=== PATIENT | female | born 1990 | race Caucasian/White ===

== ENCOUNTER 2018-04-03 08:00 | Inpatient (IN) ==
[2018-04-03] MEDS ORDERED: miSOPROStol 25 MCG TABLET VG PRN (08:27)
[2018-04-03] MEDS ORDERED: Metoclopramide 10 MG/2 ML VIAL IVP PRN (08:27)
[2018-04-03] MEDS ORDERED: *HR* Nalbuphine 10 MG/ML AMPUL IVP PRN (08:27)
[2018-04-03] MEDS ORDERED: Naloxone 0.4 MG/ML INJ IVP PRN (08:27)
[2018-04-03] MEDS ORDERED: Famotidine 20 MG/2 ML VIAL IVP PRN (08:27)
[2018-04-03] MEDS ORDERED: Ringers Solution, Lactated 1,000 ML IVC SCH (08:30)
[2018-04-03] MEDS ORDERED: Ringers Solution, Lactated 1,000 ML ONE (08:45)
[2018-04-03 08:58] LABS: Basophils % 0.4 %; Eosinophils # 0.1 K/mcL (0.0-0.6); Eosinophils % 1.1 %; Hematocrit 41.5 % (35.3-44.9); Hemoglobin 14.3 g/dL (11.5-15.4); Immature Granulocytes % 0.7 % (0-4); Lymphocytes # 1.8 K/mcL (0.6-4.6); Lymphocytes % 19.7 %; Mean Corpuscular HGB Conc 34.5 g/dL (31.6-35.5); Mean Corpuscular Volume 89.8 fL (83.0-100.0); Mean Platelet Volume 10.2 fL (9.4-12.4); Monocytes # 0.6 K/mcL (0.0-1.3); Monocytes % 6.9 %; Neutrophils # 6.4 K/mcL (1.6-8.9); Platelet Count 213 K/mcL (140-400); Red Blood Count 4.62 M/mcL (3.82-4.97); Red Cell Distribution Width 12.8 % (11.5-14.5); Segmented Neutrophils % 71.2 %
[2018-04-03 09:36] LABS: Amphetamine Screen,Urine Negative ng/mL (Cutoff=1000); Barbiturate Screen,Urine Negative ng/mL (Cutoff=200); Benzodiazepines Screen,Urine Negative ng/mL (Cutoff=200); Cannabinoid Screen,Urine Negative ng/mL (Cutoff = 50); Cocaine Screen,Urine Negative ng/mL (Cutoff= 300); Opiate Screen,Urine Negative ng/mL (Cutoff=300); Phencyclidine Screen,Urine Negative ng/mL (Cutoff=25)
--- NOTE | 2018-04-03 10:04 | OB/GYN History & Physical ---
Date of Encounter: 04/03/18 Time of Encounter: 09:57 Assessment and Plan (1) 40 weeks gestation of Current visit: Yes Status: Acute Admit to labor and delivery. epidural and nubain available at request. 50mcg of cytotec given. Continous heart monitoring. GBS negative. Anticipate vaginal delivery. OB recreation technician is Dr. Haywood (2) Encounter for induction of labor Current visit: Yes Status: Acute History of Present Illness Chief complaint: Induction of Labor HPI: Ms. Givens is a 27 year old female presenting to labor and delivery today for induction of labor. She is a and 40weeks 2days gestation. No complications in thus far. She denies leakage of clear fluid, and denies vaginal bleeding. She admits to good movement. Her primary OB physician is Dr. Haywood. Blood type: O+ GBS Status: negative Hep B Surface Ag: negative HIV Ab: negative Treponema Ab: negative Gonorrhea/Chlamydia: negative Varicella: positive IgG Ab Rubella: Positive IgG Ab Urine Drug Screen: negative Past Med Surg Social Fam HX - Past Medical History Source: patient Medical history: no medical history, other Additional medical history: uncomplicated vaginal delivery 06/2014 Psychiatric history: no psych history - Past Surgical History Surgical History: no surgical history - Social History Smoking Status: Never smoker Alcohol use: none Drug use: none - Family History Father Living Status: Still Living Hx Family Cardiac Disorders: Yes (triple bypass) Obstetrical History - Pregnancies : 4 Para: 1 Term: 1 : 0 Ab's: 2 Livin Medications and Allergies Folic Acid [Folic Acid] 1 mg PO DAILY 04/03/18 [History] One Daily Tablet 1 tab PO DAILY 04/03/18 [History] 3 Allergy/AdvReac Type Severity Reaction Status Date / Time No Known Allergies Allergy Verified 04/03/18 09:12 Review of System OB All systems PM: reviewed and no additional remarkable complaints except as stated - Constitutional Constitutional ROS IM: as per HPI, no fever(s) - Cardiovascular Cardiovascular: no chest pain, no leg edema - Gastrointestinal Gastrointestinal: no abdominal pain - Integumentary Integumentary: no swelling - Neurological Nerological: no headache(s), no other visual disturbances Exam - Vital Signs Vital signs: Initial Vital Signs Temp Pulse Resp BP 98.0 F 86 12 122/78 09/19/18 08:49 04/03/18 08:49 04/03/18 08:49 04/03/18 08:49 - Constitutional Constitutional: well developed, well nourished, no acute distress, average body habitus - HEENT HEENT: EOMI - Lungs Respiratory exam: CTAB - Cardiovascular Cardiovascular exam: RRR - Abdomen Abdomen: Present: gravid, non tender - Cervix Dilation: 3 (on exam 04/02) Effacement: 80 Station: -3 Results Result Diagrams: 04/03/18 08:40 All other labs normal. - VTE Reasons for not Prescribing Prophylaxis: Treatment not Indicated - Low risk for VTE
--- NOTE | 2018-04-03 13:59 | OB Labor Progress Note ---
Date of Encounter: 04/03/18 Time of Encounter: 13:58 Labor Progress Note - Subjective Subjective: Patient states feeling occasional contractions - Cervix Cervix: 3/80/-2 - Heart Tones Heart Tones: 135/moderate/positive accelerations/negative decels - Interventions Interventions: AROM for small amount of clear fluid - Plan Plan: Start Pitocin per policy Nubain and epidural as desired Frequent repositioning Anticipate
[2018-04-03] MEDS ORDERED: Oxytocin 20 units/ LR 1000 mL 20 UNIT/1,000 ML BAG IVC ONE (14:29)
[2018-04-03] MEDS ORDERED: Oxytocin 20 units/ LR 1000 mL 20 UNIT/1,000 ML BAG IVC SCH ×2 (14:30→19:24)
--- NOTE | 2018-04-03 17:37 | OB/GYN Procedure Note ---
Delivery - Delivery Date: 04/03/18 Provider: Shelley Haywood Intrapartum events: none Delivery induction: AROM, oxytocin, misoprostol Delivery monitor: external FHT, external uterine Anesthesia: local Quantitated Blood Loss: 400 - Infant (s) A Delivery Date: 04/03/18 Delivery Time: 17:03 Presentation: vertex Position: CYRUS Route of delivery: Gender: Male Viability: Viable Pounds: 7 Ounces: 11 Weight Gram: 3.494 kg at 1 minute: 8 at 5 mins: 9 Shoulder Dystocia: not encountered Specimens collected: cord blood Placenta: spontaneous Cord: nuchal cord (x3), 3 umbilical vessels - Repair Episiotomy: none Laceration Description: Perineal - 2nd Degree - Complications Delivery complications: none Delivery comments: Called to room with patient complete and +2 station. Under maternal effort she delivered a viable male weighing 7 lbs. 11 oz. and Apgars 8 and 9 at one and 5 minutes respectively. Following delivery of the head there was nuchal cord noted which she delivered through. After delivery nuchal cord 3 was reduced and was placed on mom's abdomen. Cord was allowed to cease pulsations and then was double clamped and cut with assistance from the father. Cord blood was collected. Second-degree perineal laceration was found on exam. The area was anesthetized using 1% lidocaine with epinephrine. The repair was done using 3-0 Monocryl in standard fashion. Placenta delivered spontaneously, complete, and intact with a three-vessel cord. Mother and infant are recovering in the LDR in stable condition. - Disposition Mom disposition: stable in LDR [place] disposition: stable in LDR
[2018-04-03] MEDS ORDERED: Lanolin 7 G OINT...G. TP PRN (19:24)
[2018-04-03] MEDS ORDERED: Acetaminophen 325 MG TABLET PO PRN (19:24)
[2018-04-03] MEDS ORDERED: Ibuprofen 600 MG TABLET PO PRN (19:24)
[2018-04-03] MEDS ORDERED: Benzocaine/Menthol 56 GM AEROSOL SPRAY TP PRN (19:24)
[2018-04-04 04:25] LABS: Basophils % 0.2 %; Eosinophils # 0.1 K/mcL (0.0-0.6); Eosinophils % 0.7 %; Hematocrit 32.4 % (35.3-44.9); Immature Granulocytes % 0.7 % (0-4); Lymphocytes # 2.4 K/mcL (0.6-4.6); Lymphocytes % 20.2 %; Mean Corpuscular HGB Conc 34.6 g/dL (31.6-35.5); Mean Corpuscular Hemoglobin 31.2 pg (28.0-33.3); Mean Corpuscular Volume 90.3 fL (83.0-100.0); Mean Platelet Volume 10.3 fL (9.4-12.4); Monocytes # 0.9 K/mcL (0.0-1.3); Monocytes % 7.6 %; Neutrophils # 8.5 K/mcL (1.6-8.9); Platelet Count 189 K/mcL (140-400); Red Blood Count 3.59 M/mcL (3.82-4.97); Red Cell Distribution Width 12.8 % (11.5-14.5); Segmented Neutrophils % 70.6 %
[2018-04-04 04:33] LABS: Hemoglobin 11.2 g/dL (11.5-15.4)
[2018-04-04] MEDS ORDERED: Prenatal Vit/FA 1 EACH TABLET PO SCH (09:00)
--- NOTE | 2018-04-04 09:02 | Discharge Summary ---
Date of Encounter: 04/04/18 Time of Encounter: 08:58 - Discharge Diagnosis (1) Vaginal delivery Priority: Primary Status: Acute Comments: S/P vaginal delivery day 1 Pain is well controlled Lochia is light and without clots VSS Tolerating regular diet; passing flatus Urinating without difficulty Breast feeding Discharge home today - Discharge Medications Prescriptions: Ibuprofen [Motrin] 600 mg PO Q6HR PRN #30 tablet PRN Reason: Cramping Breast Pump [BREAST PUMP] 1 each .ROUTE AD 99 Days #1 each Docusate [Colace] 100 mg PO BID PRN #30 capsule PRN Reason: Constipation Ferrous Sulfate 325 mg PO 0800 #90 tablet Home Medications: One Daily Tablet 1 tab PO DAILY 04/03/18 [History] Acetaminophen [Tylenol] 650 mg PO Q6HR PRN tablet 04/04/18 [Rx] Benzocaine/Menthol Flushing [Dermoplast Flushing] 1 appl TP QID PRN aerosol 04/04/18 [Rx] Breast Pump [BREAST PUMP] 1 each .ROUTE AD 99 Days #1 each 04/04/18 [Rx] Docusate [Colace] 100 mg PO BID PRN #30 capsule 04/04/18 [Rx] Ferrous Sulfate 325 mg PO 0800 #90 tablet 04/04/18 [Rx] Ibuprofen [Motrin] 600 mg PO Q6HR PRN #30 tablet 04/04/18 [Rx] Lanolin [Lansinoh] 1 appl TP QID PRN oint...g. 04/04/18 [Rx] Allergies/Adverse Reactions: 3 Allergy/AdvReac Type Severity Reaction Status Date / Time No Known Allergies Allergy Verified 04/03/18 09:12 Data Procedures and tests throughout hospitalization: Laboratory Tests 04/03/18 04/03/18 04/04/18 08:40 08:40 03:57 WBC 9.0 12.0 H RBC 4.62 3.59 L Hgb 14.3 11.2 L D Hct 41.5 32.4 L MCV 89.8 90.3 MCH 31.0 31.2 MCHC 34.5 34.6 RDW 12.8 12.8 Plt Count 213 189 MPV 10.2 10.3 Immature Gran % 0.7 0.7 Seg Neutrophils % 71.2 70.6 Lymphocytes % 19.7 20.2 Monocytes % 6.9 7.6 Eosinophils % 1.1 0.7 Basophils % 0.4 0.2 Neutrophils # 6.4 8.5 Lymphocytes # 1.8 2.4 Monocytes # 0.6 0.9 Eosinophils # 0.1 0.1 Basophils # 0.0 0.0 Urine Opiates Screen Negative Ur Barbiturates Screen Negative Ur Phencyclidine Scrn Negative Ur Amphetamines Screen Negative U Benzodiazepines Scrn Negative Urine Cocaine Screen Negative U Marijuana (THC) Screen Negative Ur Drug Screen Interp See Below Labs on day of discharge: Labs from last 24 hours 04/04/18 04/03/18 04/03/18 03:57 08:40 08:40 WBC 12.0 H 9.0 RBC 3.59 L 4.62 Hgb 11.2 L D 14.3 Hct 32.4 L 41.5 MCV 90.3 89.8 MCH 31.2 31.0 MCHC 34.6 34.5 RDW 12.8 12.8 Plt Count 189 213 MPV 10.3 10.2 Immature Gran % 0.7 0.7 Seg Neutrophils % 70.6 71.2 Lymphocytes % 20.2 19.7 Monocytes % 7.6 6.9 Eosinophils % 0.7 1.1 Basophils % 0.2 0.4 Neutrophils # 8.5 6.4 Lymphocytes # 2.4 1.8 Monocytes # 0.9 0.6 Eosinophils # 0.1 0.1 Basophils # 0.0 0.0 Urine Opiates Screen Negative Ur Barbiturates Screen Negative Ur Phencyclidine Scrn Negative Ur Amphetamines Screen Negative U Benzodiazepines Scrn Negative Urine Cocaine Screen Negative U Marijuana (THC) Screen Negative Date of admission: 04/03/18 08:24 Primary care physician: Kayce Vanegas MD Consults: 04/03/18 19:24 Consult to [employer]old Erector [CONS] Routine Comment: Vaginal delivery, consult needed Discharging clinician: Stacy Flores Anticipated date of discharge: 04/04/18 - Patient Status Disposition: Home, Self-Care Condition: Good Functional capacity at discharge: independent ambulation Overall status at discharge: patient is progressing back to baseline - Discharge Instructions Follow Up With: Kayce Vanegas MD [Primary Care Provider] - Shelley Haywood DO [Partnered Physician] - - Diet and Activity Activity: increase activity as tolerated Diet: regular diet Hospital Course Reason for admission: IUP at term Delivery: Episiotomy: none Laceration: 2nd degree Other procedures: none complications: none Discharge diagnosis: IUP at term delivered baby: male Time Attestation: Total time spent providing and/or coordinating discharge services: Time Spent: Less than 30 minutes Exam - Constitutional Vitals: Temp Pulse Resp BP Pulse Ox 98.3 F 82 16 109/64 98 04/04/18 07:00 04/04/18 07:00 04/04/18 07:00 04/04/18 07:00 04/04/18 04:00 General appearance IM: cooperative, A&O X 3, pleasant - Respiratory Respiratory exam: Present: CTAB - Cardiovascular Cardiovascular exam IM: Present: RRR, +S1, +S2 - GI/Abdominal GI/Abdominal exam IM: normal bowel sounds, soft - Rectal Rectal exam: deferred - Uterine Tone: Firm Uterus Position: At Umbilicus, Midline - Extremities Exam Extremities exam IM: Present: normal capillary refill, normal inspection, radial pulses palpable and symmetrical - Neurological Exam Neurological exam: alert, oriented X3
[2018-04-04 15:25] VITALS: BP 94/54
== END 2018-04-04 16:30 | disposition home or self-care (01) | DRG 775 ==
LOC: 1NENULAB 08:24 → 1NENUOBS 18:25 → UNDODISIN 04-04 11:29
PROVIDERS: ADMIT Obstetrics & Gynecology; ATTEND Obstetrics & Gynecology

== ENCOUNTER 2020-11-19 20:59 | Inpatient (IN) ==
[~2020-11-19 20:59] MED LIST: Ringers Solution, Lactated 1,000 ML ONE
[2020-11-19] MEDS ORDERED: *HR* FentaNYL (PF) 100 MCG/2 ML VIAL EP ONE (22:03)
[2020-11-19] MEDS ORDERED: EPHEDrine 50 MG/ML VIAL IVP PRN (22:03)
[2020-11-19] MEDS ORDERED: Epidural Premix (fent/bupiv) 110 ML EP SCH (22:15)
[2020-11-19] MEDS ORDERED: Ringers Solution, Lactated 1,000 ML ONE (22:25)
[2020-11-19] MEDS ORDERED: Lidocaine 1% 20 ML MDV ID PRN (22:27)
[2020-11-19] MEDS ORDERED: Metoclopramide 10 MG/2 ML VIAL IVP PRN (22:27)
[2020-11-19] MEDS ORDERED: Famotidine 20 MG/2 ML VIAL IVP PRN (22:27)
[2020-11-19] MEDS ORDERED: *HR* Nalbuphine 10 MG/ML AMPUL IV PRN (22:27)
[2020-11-19] MEDS ORDERED: Naloxone 0.4 MG/ML INJ IVP PRN (22:27)
[2020-11-19] MEDS ORDERED: Ringers Solution, Lactated 1,000 ML IVC SCH (22:30)
[2020-11-19] MEDS ORDERED: Oxytocin 20 units/ LR 1000 mL 20 UNIT/1,000 ML BAG IVC SCH (22:45)
[2020-11-20 00:26] LABS: Basophils % 0.4 %; Eosinophils # 0.1 K/mcL (0.0-0.6); Eosinophils % 0.8 %; Hematocrit 40.4 % (35.3-44.9); Hemoglobin 13.2 g/dL (11.5-15.4); Immature Granulocytes % 0.8 % (0-4); Lymphocytes % 18.8 %; Mean Corpuscular HGB Conc 32.7 g/dL (31.6-35.5); Mean Corpuscular Hemoglobin 29.9 pg (28.0-33.3); Mean Corpuscular Volume 91.4 fL (83.0-100.0); Mean Platelet Volume 10.8 fL (9.4-12.4); Monocytes # 0.7 K/mcL (0.0-1.3); Monocytes % 6.7 %; Neutrophils # 7.5 K/mcL (1.6-8.9); Platelet Count 217 K/mcL (140-400); Red Blood Count 4.42 M/mcL (3.82-4.97); Red Cell Distribution Width 13.2 % (11.5-14.5); Segmented Neutrophils % 72.5 %; White Blood Count 10.4 K/mcL (4.3-11.1)
[2020-11-20 00:29] LABS: Amphetamine Screen,Urine Negative ng/mL (Cutoff=1000); Barbiturate Screen,Urine Negative ng/mL (Cutoff=200); Benzodiazepines Screen,Urine Negative ng/mL (Cutoff=200); Cannabinoid Screen,Urine Negative ng/mL (Cutoff = 50); Cocaine Screen,Urine Negative ng/mL (Cutoff= 300); Opiate Screen,Urine Negative ng/mL (Cutoff=300); Phencyclidine Screen,Urine Negative ng/mL (Cutoff=25)
[2020-11-20] MEDS ORDERED: *HR* FentaNYL (PF) 100 MCG/2 ML VIAL ONE (01:07)
[2020-11-20] MEDS ORDERED: Ibuprofen 600 MG TABLET PO PRN (03:16)
[2020-11-20] MEDS ORDERED: Oxytocin 20 units/ LR 1000 mL 20 UNIT/1,000 ML BAG IVC SCH (03:16)
[2020-11-20] MEDS ORDERED: Measles/Mumps/Rubella Vacc 0.5 ML VIAL SQ PRN (03:16)
[2020-11-20] MEDS ORDERED: Oxytocin 20 units/ LR 1000 mL 20 UNIT/1,000 ML BAG IVC ONE (03:16)
[2020-11-20] MEDS ORDERED: Rho Immune Globulin 1,500 UNIT SYRINGE IM PRN (03:16)
[2020-11-20] MEDS ORDERED: Acetaminophen 325 MG TABLET PO PRN (03:16)
[2020-11-20] MEDS ORDERED: Benzocaine/Menthol 56 GM AEROSOL SPRAY TP PRN (03:16)
[2020-11-20] MEDS ORDERED: Lanolin 7 G OINT...G. TP PRN (03:57)
[2020-11-20] MEDS: Prenatal Vit/FA 1 EACH TABLET PO SCH (10:34)
[2020-11-20 11:57] LABS: Adenovirus Not Detected (Not Detect); Bordetella Pertussis Not Detected (Not Detect); Chlamydophila pneumoniae Not Detected (Not Detect); Coronavirus 229E Not Detected (Not Detect); Coronavirus HKU1 Not Detected (Not Detect); Coronavirus NL63 Not Detected (Not Detect); Coronavirus OC43 Not Detected (Not Detect); Human Metapneumovirus Not Detected (Not Detect); Human Rhinovirus/Enterovirus DETECTED (Not Detect); Influenza A Subtype 2009 H1 Not Detected (Not Detect); Influenza B Not Detected (Not Detect); Mycoplasma pneumoniae Not Detected (Not Detect); Parainfluenza Virus 1 Not Detected (Not Detect); Parainfluenza Virus 2 Not Detected (Not Detect); Parainfluenza Virus 3 Not Detected (Not Detect); Parainfluenza Virus 4 Not Detected (Not Detect); Respiratory Syncytial Virus Not Detected (Not Detect); SARS-CoV-2 Not Detected (Not Detect)
[2020-11-21 04:32] LABS: Basophils # 0.1 K/mcL (0.0-0.2); Basophils % 0.5 %; Eosinophils # 0.2 K/mcL (0.0-0.6); Eosinophils % 1.7 %; Immature Granulocytes % 0.8 % (0-4); Lymphocytes % 19.8 %; Mean Corpuscular HGB Conc 32.6 g/dL (31.6-35.5); Mean Corpuscular Hemoglobin 30.2 pg (28.0-33.3); Mean Corpuscular Volume 92.4 fL (83.0-100.0); Mean Platelet Volume 10.4 fL (9.4-12.4); Monocytes # 0.8 K/mcL (0.0-1.3); Monocytes % 7.7 %; Neutrophils # 7.1 K/mcL (1.6-8.9); Platelet Count 164 K/mcL (140-400); Red Blood Count 3.68 M/mcL (3.82-4.97); Red Cell Distribution Width 13.3 % (11.5-14.5); Segmented Neutrophils % 69.5 %; White Blood Count 10.2 K/mcL (4.3-11.1)
[2020-11-21 04:37] LABS: Hemoglobin 11.1 g/dL (11.5-15.4)
[2020-11-21 08:20] VITALS: BP 121/81
[2020-11-21] MEDS: Prenatal Vit/FA 1 EACH TABLET PO SCH (08:49)
== END 2020-11-21 13:32 | disposition home or self-care (01) | DRG 807 ==
LOC: 1NENULAB → 1NENUOBS 11-20 03:41
PROVIDERS: ADMIT Obstetrics & Gynecology; ATTEND Obstetrics & Gynecology